=== PATIENT | female | born 1980 | race American Indian/Alaskan Native ===

== ENCOUNTER 2018-03-25 08:01 | Emergency (ER) | payer MEDICAID ==
[2018-03-25 08:09] VITALS: BP 153/69
--- NOTE | 2018-03-25 08:35 | Emergency Department Report ---
ED Lower Extremity HPI - General Chief Complaint: Extremity Injury, Lower Stated Complaint: R FOOT PAIN Time Seen by Provider: 03/25/18 08:27 Source: patient Mode of arrival: Ambulatory Limitations: No Limitations - History of Present Illness Initial Comments: This is a 38-year-old -[place] female, that presents with right knee pain that is affected and right foot. Patient reports pain to the right foot for 2 years and is currently seeing orthopedics at [facility]. Reports pain is worsening and causing difficulty walking. She is currently using crutches to help ambulate. Reports hearing a popping sound and sensation to right knee with any pressure/weight bearing. She is currently taken Aleve, using icy hot, and massages which is not improving pain. States orthopedic surgery advised to take Aleve daily to help with arthritis. She was referred to physical therapy but unable to follow-up with physical therapy. Reports unable to walk yesterday every time she applies pressure if feels like the leg is turning and were and she is unable to continue to walk. She was advised to lose weight that may improve symptoms. She has an appointment with bariatric surgery next month. In hopes of getting gastric bypass. Admits to swelling and an pain 10 out of 10 on pain scale. Pain as intermittent and aggravated by weightbearing. Denies numbness and tingling, deformity, redness, dizziness, and fever. MD Complaint: knee injury -: year(s) (2 years) Injury: Knee: Right Type of Injury: unknown Place: home Severity: severe Severity scale (0 -10): 8 Improves With: immobilization Worsens With: weight bearing, movement Context: other Associated Symptoms: snap/pop sensation, swelling, able to partially bear weight , ambulatory. denies: numbness, tingling, unable to bear weight Treatments Prior to Arrival: cold therapy, NSAIDS - Related Data Previous Rx's Medication Instructions Recorded Last Taken Type Ibuprofen 800 mg PO Q6H PRN #20 tablet 03/25/18 Unknown Rx Allergies Allergy/AdvReac Type Severity Reaction Status Date / Time No Known Allergies Allergy Unverified 03/25/18 08:05 ED Review of Systems ROS: Stated complaint: R FOOT PAIN Other details as noted in HPI Constitutional: denies: chills, fever Respiratory: denies: cough, shortness of breath, wheezing Cardiovascular: denies: chest pain, palpitations Gastrointestinal: denies: abdominal pain, nausea, diarrhea Musculoskeletal: joint swelling (swelling of right knee), arthralgia (right knee pain). denies: back pain Skin: denies: rash, lesions Neurological: denies: headache, weakness, paresthesias Psychiatric: denies: anxiety, depression ED Past Medical Hx - Past Medical History Previous Medical History?: Yes Hx Arthritis: Yes Additional medical history: right foot pain - Surgical History Past Surgical History?: No - Social History Smoking Status: Former Smoker Substance Use Type: Alcohol, Marijuana - Medications Home Medications: Home Medications Medication Instructions Recorded Confirmed Last Taken Type Ibuprofen 800 mg PO Q6H PRN #20 tablet 03/25/18 Unknown Rx ED Physical Exam - General Limitations: No Limitations General appearance: alert, in no apparent distress - Respiratory Respiratory exam: Present: normal lung sounds bilaterally. Absent: respiratory distress - Cardiovascular Cardiovascular Exam: Present: regular rate, normal rhythm, normal heart sounds. Absent: systolic murmur, diastolic murmur, rubs, gallop - GI/Abdominal GI/Abdominal exam: Present: soft, normal bowel sounds. Absent: distended, tenderness, guarding, rebound, rigid - Extremities Exam Extremities exam: Present: normal inspection, normal capillary refill. Absent: calf tenderness - Expanded Lower Extremity Exam Right Hip exam: Present: full ROM, tenderness Upper Leg exam: Present: normal inspection, full ROM Knee exam: Present: full ROM (limited ROM 2/2 pain), tenderness, swelling, pain w/ pronation/supination, full knee extension. Absent: abrasion, laceration, ecchymosis, deformity, crepidus, dislocation, erythema Lower Leg exam: Present: normal inspection, full ROM Ankle exam: Present: normal inspection, full ROM Foot/Toe exam: Present: normal inspection, full ROM Neuro vascular tendon exam: Present: no vascular compromise Gait: Positive: observed and limited by pain - Neurological Exam Neurological exam: Present: alert, oriented X3 - Psychiatric Psychiatric exam: Present: normal affect, normal mood - Skin Skin exam: Present: warm, dry, intact, normal color. Absent: rash ED Course Vital Signs 03/25/18 08:05 Temperature 98.1 F Pulse Rate 65 Respiratory 20 Rate Blood Pressure 153/69 O2 Sat by Pulse 98 Oximetry ED Lower Extremity MDM - Radiology Data Radiology results: report reviewed Right knee XR: Suspicion of fluid suprapatellar bursa. - Medical Decision Making This is a 38 y.o. female presents with chronic right knee pain that increased over past week. Patient was examined by me. Vitals stable. Obtained xray of right knee, Suspicion of fluid suprapatellar bursa. Patient informed of knee effusion. Plan discussed with patient to discharge home and treat outpatient. F/ U with Orthopedic. Referral to Dr. De Leon or f/u with Orthopedic at [facility]. Patient discharged home in stable condition. Start ibuprofen, continue to wear brace, and elevation. Follow up with PCP. Critical care attestation.: If time is entered above; I have spent that time in minutes in the direct care of this critically ill patient, excluding procedure time. ED Disposition Clinical Impression: Knee effusion, right Osteoarthritis Qualifiers: Osteoarthritis location: knee Osteoarthritis type: primary Laterality: right Qualified Code(s): M17.11 - Unilateral primary osteoarthritis, right knee Right knee pain Qualifiers: Chronicity: chronic Qualified Code(s): M25.561 - Pain in right knee; G89.29 - Other chronic pain Disposition: TO HOME OR SELFCARE Is pt being admited?: No Does the pt Need Aspirin: No Condition: Stable Instructions: Osteoarthritis (ED), Knee Effusion (ED) Additional Instructions: Rest Use ice or heat on affected area for 20 minutes and off for 2 hours. Take pain medication as needed for pain. Don't drive or operate heavy machinery while taking muscle relaxers because they may cause drowsiness. Follow up with Primary Care Provider in 2 days. Prescriptions: Ibuprofen 800 mg PO Q6H PRN #20 tablet PRN Reason: Pain Referrals: MERLENE DE LEON MD [Staff Physician] - 3-5 Days [facility] [Outside] - 3-5 Days [facility] [Outside] - 3-5 Days Forms: Work/School Release Form(ED) Time of Disposition: 10:15 Print Language: MALAGASY
--- NOTE | 2018-03-25 09:01 | XRay Report ---
Right knee 3 views: History: Right knee pain. Findings: Suspicion of fluid in the suprapatellar bursae. No articular abnormality. No fracture dislocation or soft tissue calcification. Cortical thickening fibular head probably related to old injury. Impression: Suspicion of fluid suprapatellar bursa.
== END 2018-03-25 10:25 | disposition home or self-care (01) ==
LOC: ED 08:01
DX: M17.11 Unilateral primary osteoarthritis, right knee (principal); M25.461 Effusion, right knee; G89.29 Other chronic pain; Z87.891 Personal history of nicotine dependence; F12.10 Cannabis abuse, uncomplicated; Z87.39 Personal history of other diseases of the musculoskeletal system and connective tissue